=== PATIENT | male | born 1995 | race Caucasian/White ===

== ENCOUNTER 2024-12-18 15:29 | Emergency (ER) | payer SELFPAY ==
[2024-12-18 15:32] VITALS: BP 142/106
--- NOTE | 2024-12-18 19:37 | ED.MUSCINJ ---
HPI-Injury
General
Chief Complaint: Musculo-Skeletal Complaint
Source: patient
Exam Limitations: none
Time Seen by Provider: 12/18/24 19:19
History of Present Illness-Injury
Initial Injury comments:
29-year-old [id number] male presents complaining of left shoulder pain. 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 He
notes clicking sensation in his shoulder and instability sensation in the shoulder. He had similar issues in the past that was rehab and was deemed cleared for physical activity. The pain is ongoing. He does not feel he is currently dislocated.
No other complaints at this time
Phy Exam
Physical Exam
Physical Exam:
General: Well-appearing male no acute distress
Musculoskeletal exam: Left shoulder tender anteriorly and superiorly about the shoulder. No deformity. Good active and passive range of motion. There is a palpable click felt upon forward elevation. He has good strength to rotator cuff strength
testing. The elbow is nontender the cervical spine is nontender. He has good sensation and strength to the left hand
Vascular: 2+ radial pulse left wrist
MDM/Problems Addressed
Differential Diagnosis Includes:
Left shoulder discomfort and instability sensation. He has had multiple x-rays of his shoulder and which have been negative. I suspect soft tissue injury perhaps labral injury given the potential recurrent dislocations. No evidence of dislocation
on exam. No indication for any x-ray at this time. Do feel that he would benefit from more advanced imaging as he has tried physical therapy and strengthening exercises without relief. Will refer to orthopedics for further evaluation. Stable for
discharge
*Critical Care Note
Total Time (30-74mins, 75-104mins- exclusive of procedures): Not Applicable
ED Attending Note
-
Portions of this chart may have been created with voice recognition software.� Occasional wrong word or��sound alike� substitutions may have occurred due to the inherent limitations of voice recognition software.
Discharge Plan
Departure
Patient Disposition: Home (Routine Discharge)
Date of Disposition: 12/18/24
Time of Disposition: 19:40
Patient with high blood pressure during this ER visit?: No
Discharge Problem:
Left shoulder strain
Instructions: Muscle and Bone Pain (DC)
Referrals:
Dawit Sandoval MD [Active] -
Activity Restrictions/Additional Instructions:
Please follow-up with orthopedics for further evaluation and imaging. I suspect a degree of instability of your shoulder secondary to soft tissue injury. Avoid overhead or strengthening activities with your left arm until seen by orthopedics
Interventions
Interventions:
*Risk Screen - Suicide Last Done: 12/18/24 15:37
*General Assessment Last Done: 12/18/24 15:37
*Neglect/Abuse Screening Last Done: 12/18/24 15:37
*ED- Fall Risk Assessment Last Done: 12/18/24 19:11
*ED COVID-19 Vaccine History Last Done: 12/18/24 15:37
Discharge Date and Time
Print Language: SLOVAK
== END 2024-12-18 20:01 | disposition home or self-care (01) ==
LOC: EMR 15:29
PROVIDERS: EMERGENCY PHYSICIAN Emergency Medicine
DX: S46.912A Strain of unspecified muscle, fascia and tendon at shoulder and upper arm level, left arm, initial encounter (principal); X50.1XXA Overexertion from prolonged static or awkward postures, initial encounter
CPT/HCPCS: 99282

== ENCOUNTER → 2025-06-11 12:06 | Outpatient (REF) | payer OTHER, SELFPAY | LOC: PAVMRI 12:06 | PROVIDERS: ATTENDING PHYSICIAN Specialist; FAMILY PHYSICIAN Family Medicine | DX: M54.12 Radiculopathy, cervical region (principal) | CPT/HCPCS: 72141 ==

== ENCOUNTER → 2025-06-17 10:34 | Outpatient (REF) | payer OTHER, SELFPAY | LOC: EMG 10:34 | PROVIDERS: ATTENDING PHYSICIAN Specialist; FAMILY PHYSICIAN Family Medicine | DX: M54.12 Radiculopathy, cervical region (principal); M25.512 Pain in left shoulder; R20.0 Anesthesia of skin | CPT/HCPCS: 95886; 95910 ==